=== PATIENT | male | born 2000 | race Caucasian/White ===

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

== ENCOUNTER 2022-09-14 14:10 | Emergency (ER) | payer OTHER ==
[~2022-09-14] VITALS: Ht 172.7 cm; Wt 70.8 kg
[2022-09-14 14:21] VITALS: BP 116/70
[2022-09-14] MEDS ORDERED: IBUP-2213 PO (15:41)
== END 2022-09-14 15:46 | disposition home or self-care (01) ==
LOC: MED 14:10
DX: S50.02XA Contusion of left elbow, initial encounter (principal); V00.131A Fall from skateboard, initial encounter; Y93.51 Activity, roller skating (inline) and skateboarding; Y92.331 Roller skating rink as the place of occurrence of the external cause; Y99.8 Other external cause status
CPT/HCPCS: 73080; 99283